=== PATIENT | female | born 1960 | race Caucasian/White ===

== ENCOUNTER 2019-10-24 14:38 | Emergency (ER) | payer OTHER ==
[~2019-10-24] VITALS: Ht 157.5 cm; Wt 96.2 kg
[~2019-10-24 14:38] MED LIST: ATENOLOL100 MG PO; AVALIDE 300/12.1 TAB PO; CATAPRES0.1 MG PO; DARVOCET A500 T1 TAB PO; DICLOFENAC SODI50 MG; ORPH100T PO; TRAMADOL HCL-AP1 TAB PO; [UNRECOGNIZED DRUG - OTHER]
== END 2019-10-24 17:02 | disposition home or self-care (01) ==
LOC: ER 14:38
DX: J22 Unspecified acute lower respiratory infection (principal); B34.9 Viral infection, unspecified